=== PATIENT | female | born 1965 | race Caucasian/White ===

== ENCOUNTER 2022-12-10 18:03 | Emergency (ER) | payer MEDICAID, BC ==
[2022-12-10] MEDS ORDERED: cefTRIAXone 1 GM, Lidocaine 1% 2.1 ML IM SCH ×2 (18:15)
[2022-12-10] MEDS ORDERED: diphenhydrAMINE 25 MG Cap PO ONE (18:24)
[2022-12-10 19:17] VITALS: BP 123/83; PULSE 76
== END 2022-12-10 19:05 | disposition home or self-care (01) ==
LOC: LL.ED 18:03
DX: T63.441A Toxic effect of venom of bees, accidental (unintentional), initial encounter (principal); L03.114 Cellulitis of left upper limb; J44.9 Chronic obstructive pulmonary disease, unspecified; Z88.8 Allergy status to other drugs, medicaments and biological substances; Z79.899 Other long term (current) drug therapy
CPT/HCPCS: 96372; 99282; 99283; A9270-GY; J0696; J3490

== ENCOUNTER 2024-06-05 09:53 | Day surgery (SDC) | payer BC, MEDICAID, OTHER ==
[~2024-06-05 09:53] MED LIST: Midazolam 1 MG/ML 2 ML SDV ONE; Propofol 200 MG/20 ML SDV ONE; Sodium Chloride 0.9% 10 ML Syringe FLUSH PRN
[2024-06-05] MEDS: Lactated Ringers 1,000 ML IV SCH (10:40)
[2024-06-05] MEDS ORDERED: Glycopyrrolate 0.2 MG/ML SDV IVPUSH ONE (12:00)
[2024-06-05] MEDS ORDERED: Propofol 200 MG/20 ML SDV ONE (12:52)
[2024-06-05 13:15] VITALS: BP 118/66; PULSE 71
== END 2024-06-05 13:30 | disposition home or self-care (01) ==
LOC: LL.SDS 09:53
PROVIDERS: ATTEND Surgery
DX: R19.4 Change in bowel habit (principal); R10.84 Generalized abdominal pain; R11.0 Nausea; E78.00 Pure hypercholesterolemia, unspecified; J44.9 Chronic obstructive pulmonary disease, unspecified; F17.200 Nicotine dependence, unspecified, uncomplicated; Z79.899 Other long term (current) drug therapy
CPT/HCPCS: 43239; 45378; J1596; J2250; J2704; J7120; 00813